=== PATIENT | female | born 1995 | race African-American/Black ===

== ENCOUNTER 2022-09-27 15:54 | Emergency (ER) | payer OTHER ==
[~2022-09-27] VITALS: Ht 170.2 cm; Wt 58.1 kg
[~2022-09-27 15:54] MED LIST: IRON325 ( 65 ) PO; NAPR500T14 PO; OXYC1TAB9 PO; PRENATAL TABLE1 EAC1 PO; PRENATE ADVANCE PO
== END 2022-09-27 17:34 | disposition home or self-care (01) ==
LOC: ER 15:54
DX: J06.9 Acute upper respiratory infection, unspecified (principal)

== ENCOUNTER 2023-03-14 19:38 | Emergency (ER) | payer OTHER ==
[~2023-03-14] VITALS: Ht 162.6 cm; Wt 90.7 kg
[2023-03-14] MEDS ORDERED: BACTRIM DS TAB1 EACH PO (20:40)
== END 2023-03-14 21:00 | disposition home or self-care (01) ==
LOC: ER 19:38
DX: L02.211 Cutaneous abscess of abdominal wall (principal); L02.11 Cutaneous abscess of neck; N61.1 Abscess of the breast and nipple; B96.89 Other specified bacterial agents as the cause of diseases classified elsewhere

== ENCOUNTER 2024-11-26 09:10 | Emergency (ER) | payer OTHER ==
[~2024-11-26] VITALS: Ht 162.6 cm; Wt 77.1 kg
[~2024-11-26 09:10] MED LIST changes: +BACTRIM DS TAB1 EACH PO
[2024-11-26] MEDS ORDERED: ACETAMINOPHEN 500 MG GEL..CAP PO STA (10:13)
[2024-11-26] MEDS ORDERED: ACETAMINOPHEN 500 MG GEL..CAP PO ONE (10:18)
[2024-11-26 12:21] LABS: COVID-19 AG NEGATIVE (NEGATIVE)
[2024-11-26 12:22] LABS: INFLUENZA A AG NEGATIVE (NEGATIVE)
== END 2024-11-26 15:33 | disposition home or self-care (01) ==
LOC: ER 09:25
PROVIDERS: General Practice
DX: R05.9 Cough, unspecified (principal); J06.9 Acute upper respiratory infection, unspecified; Z20.822 Contact with and (suspected) exposure to COVID-19